=== PATIENT | female | born 1940 | race Caucasian/White ===

== ENCOUNTER 2017-10-03 10:34 | Inpatient (IN) | payer MEDICARE ==
[~2017-10-03] VITALS: Ht 161.3 cm; Wt 73.5 kg
[2017-10-03] MEDS ORDERED: PLEASE ENTER ALLERGIES MC SCH (11:00)
[2017-10-03] MEDS ORDERED: LORazepam 0.5MG TABLET PO ONE (11:00)
[2017-10-03] MEDS: PLEASE ENTER HEIGHT AND WEIGHT MC SCH ×2 (11:05→17:23)
[2017-10-03 11:41] LABS: BASOPHILS # (AUTO) 0.02 x10^3/uL (0-0.1); BASOPHILS % (AUTO) 0 % (0-1); EOSINOPHILS # (AUTO) 0.03 x10^3/uL (0-0.4); EOSINOPHILS % (AUTO) 1 % (1-7); LYMPHOCYTES # (AUTO) 0.75 x10^3/uL (1-3.4); LYMPHOCYTES % (AUTO) 11 % (22-44); MD NO; MEAN CORPUSCULAR HGB CONC 34.6 g/dL (32.4-35.8); MEAN CORPUSCULAR VOLUME 101.1 fL (80-100); MEAN PLATELET VOLUME 6.9 fL (7.4-10.4); MONOCYTES # (AUTO) 0.48 x10^3/uL (0.2-0.8); MONOCYTES % (AUTO) 7 % (2-9); NEUTROPHILS # (AUTO) 5.42 x10^3/uL (1.8-6.8); NEUTROPHILS % (AUTO) 81 % (42-75); PLATELET COUNT 268 x10^3/uL (130-400); RED BLOOD COUNT 4.33 x10^6/uL (3.82-5.3); RED CELL DISTRIBUTION WIDTH 15.5 % (9.6-15.2)
[2017-10-03 11:46] LABS: ALBUMIN 4.3 g/dL (3.4-5.0); ANION GAP 8 mmol/L (5-15); CALCIUM 8.6 mg/dL (8.5-10.1); CHLORIDE 96 mmol/L (98-107); CREATININE 1.07 mg/dL (0.55-1.02)
[2017-10-03] MEDS ORDERED: SODIUM CHLORIDE 0.9% 1,000 ML IV ONE (12:30)
[2017-10-03] MEDS ORDERED: LEVO50TA5 PO (12:46)
[2017-10-03] MEDS ORDERED: VALS80TA3 PO (12:46)
[2017-10-03] MEDS ORDERED: ESTR1TAB36 PO (12:46)
[2017-10-03] MEDS ORDERED: MEDR2.5T30 PO (12:46)
[2017-10-03] MEDS ORDERED: AMLO5TAB2 PO (12:46)
[2017-10-03 14:00] VITALS: BP 146/78
[2017-10-03] MEDS ORDERED: CETIRIZINE 10 MG TABLET PO PRN (14:30)
[2017-10-03] MEDS ORDERED: LABETALOL 5MG/ML, 20ML IV PRN (14:30)
[2017-10-03] MEDS ORDERED: ACETAMINOPHEN 650 MG/20.3 ML UDC PO PRN (14:30)
[2017-10-03] MEDS ORDERED: DOCUSATE 100 MG CAPSULE PO PRN (14:30)
[2017-10-03] MEDS ORDERED: ONDANSETRON 4 MG TABLET PO PRN (14:30)
[2017-10-03] MEDS ORDERED: POLYETHYLENE GLYCOL 17 GM PACKET PO PRN (14:30)
[2017-10-03 14:51] LABS: FOLATE LEVEL 16.2 ng/mL (3.1-17.5); THYROID STIMULATING HORMONE 1.58 mIU/L (0.358-3.740)
[2017-10-03 15:03] LABS: TROPONIN I < 0.015 ng/mL (0.000-0.045)
[2017-10-03] MEDS: SODIUM CHLORIDE 0.9% 1,000 ML IV SCH (15:34)
[2017-10-03 18:35] LABS: MICROSCOPIC AUTO
[2017-10-03 18:46] LABS: CULTURE INDICATED? NO
[2017-10-03 18:51] LABS: OSMOLALITY,URINE 144 mOsm/kg (500-850)
[2017-10-03 20:37] VITALS: BP 157/81
[2017-10-03] MEDS: SODIUM CHLORIDE NASAL SPRAY 45ML BOTTLE NAS SCH (21:00)
[2017-10-03] MEDS: FLUTICASONE NASAL SPRAY 16GM NAS SCH (21:00)
[2017-10-03] MEDS ORDERED: ATORVASTATIN 40 MG TABLET PO SCH (21:00)
[2017-10-04] MEDS ORDERED: DIPHENHYDRAMINE 25 MG CAPSULE PO PRN (01:00)
[2017-10-04 01:46] VITALS: BP 130/79
[2017-10-04] MEDS: PLEASE ENTER HEIGHT AND WEIGHT MC SCH ×2 (03:00→11:00)
[2017-10-04 05:49] LABS: BASOPHILS # (AUTO) 0.04 x10^3/uL (0-0.1); BASOPHILS % (AUTO) 1 % (0-1); EOSINOPHILS # (AUTO) 0.04 x10^3/uL (0-0.4); EOSINOPHILS % (AUTO) 1 % (1-7); LYMPHOCYTES # (AUTO) 1.25 x10^3/uL (1-3.4); LYMPHOCYTES % (AUTO) 19 % (22-44); MD NO; MEAN CORPUSCULAR HEMOGLOBIN 34.7 pg (27.0-34.8); MEAN CORPUSCULAR HGB CONC 34.3 g/dL (32.4-35.8); MEAN CORPUSCULAR VOLUME 101.1 fL (80-100); MEAN PLATELET VOLUME 7.4 fL (7.4-10.4); MONOCYTES # (AUTO) 0.61 x10^3/uL (0.2-0.8); MONOCYTES % (AUTO) 9 % (2-9); NEUTROPHILS # (AUTO) 4.68 x10^3/uL (1.8-6.8); NEUTROPHILS % (AUTO) 71 % (42-75); PLATELET COUNT 260 x10^3/uL (130-400); RED BLOOD COUNT 4.07 x10^6/uL (3.82-5.3); RED CELL DISTRIBUTION WIDTH 15.5 % (9.6-15.2)
[2017-10-04 05:56] LABS: ANION GAP 7 mmol/L (5-15); CHLORIDE 108 mmol/L (98-107)
[2017-10-04] MEDS ORDERED: ASPIRIN 325 MG TABLET PO SCH (06:00)
[2017-10-04 06:02] LABS: CHOL/HDL RATIO 3.2; CHOLESTEROL, TOTAL 194 mg/dL (140-239); HDL CHOL % 31 % (28-40); HDL CHOLESTEROL (DIRECT) 61 mg/dL (40-60); LDL CHOLESTEROL,CALCULATED 117 mg/dL (54-169); LDL/HDL RATIO 1.9 (0.5-3.0); TRIGLYCERIDES 78 mg/dL (50-200); VLDL CHOLESTEROL 16 mg/dL (0-25)
[2017-10-04] MEDS: SODIUM CHLORIDE 0.9% 1,000 ML IV SCH (06:02)
[2017-10-04 06:06] LABS: CALCIUM 8.6 mg/dL (8.5-10.1)
[2017-10-04] MEDS ORDERED: LEVOTHYROXINE 50 MCG TABLET PO SCH (07:30)
[2017-10-04 07:40] VITALS: BP 132/83
[2017-10-04] MEDS: FLUTICASONE NASAL SPRAY 16GM NAS SCH (08:23)
[2017-10-04] MEDS: SODIUM CHLORIDE NASAL SPRAY 45ML BOTTLE NAS SCH (08:23)
[2017-10-04] MEDS ORDERED: MIDAZOLAM 1 MG/ML, 5ML ONE (09:02)
[2017-10-04] MEDS ORDERED: FENTANYL PF 100 MCG/2ML ONE (09:02)
[2017-10-04 12:38] VITALS: BP 118/72
[2017-10-04] MEDS ORDERED: SODI44SP NAS (17:20)
[2017-10-04] MEDS ORDERED: FLUT16SP NAS (17:20)
[2017-10-04] MEDS ORDERED: CETI10TA18 PO (17:20)
[2017-10-04] MEDS ORDERED: ASPI-621 PO (17:20)
[2017-10-04] MEDS ORDERED: ATOR40TA78 PO (17:20)
== END 2017-10-04 18:26 | disposition home or self-care (01) | DRG 69 ==
LOC: ED 11:33 → EDIP 12:13 → 4WST 13:24
PROVIDERS: ADMIT Internal Medicine; ATTEND Internal Medicine
DX: G45.9 Transient cerebral ischemic attack, unspecified (principal); E87.1 Hypo-osmolality and hyponatremia; E86.0 Dehydration; I10 Essential (primary) hypertension; E03.9 Hypothyroidism, unspecified; F41.9 Anxiety disorder, unspecified; N95.9 Unspecified menopausal and perimenopausal disorder; J30.9 Allergic rhinitis, unspecified; Z79.82 Long term (current) use of aspirin; Z79.890 Hormone replacement therapy; Z80.1 Family history of malignant neoplasm of trachea, bronchus and lung; Z86.73 Personal history of transient ischemic attack (TIA), and cerebral infarction without residual deficits; Z98.49 Cataract extraction status, unspecified eye
CPT/HCPCS: 36415; 70450; 70551; 71045; 80048; 80061; 81001; 82040; 82607; 82746; 82962; 83036; 83735; 83930; 83935; 84295; 84300; 84443; 84484; 85025; 93005; 93306; 93880; 99156; 99157; 99285; J2250; J3010; 92523-GN; J7030; Q0163